=== PATIENT | male | born 1950 | race Caucasian/White ===

== ENCOUNTER → 2018-06-28 | Outpatient (CLI) | payer MEDICARE ==
[~2018-06-28] MED LIST: ACYC-114 PO; GADOBUTROL 7.5 MMOL/7.5 ML PFS ONE; IBUP-1221 PO
== END | disposition home or self-care (01) ==
LOC: CFH 09:07
PROVIDERS: ATTEND Psychiatry & Neurology Neurology
DX: M51.35 Other intervertebral disc degeneration, thoracolumbar region (principal); M50.30 Other cervical disc degeneration, unspecified cervical region; M99.53 Intervertebral disc stenosis of neural canal of lumbar region
CPT/HCPCS: 72156; 72157; 72158; A9585

== ENCOUNTER 2019-09-20 10:51 | Emergency (ER) | payer MEDICARE ==
[~2019-09-20] VITALS: Ht 182.9 cm; Wt 71.0 kg
[~2019-09-20 10:51] MED LIST changes: -GADOBUTROL 7.5 MMOL/7.5 ML PFS ONE
--- NOTE | 2019-09-20 11:32 | NUR ---
pt ambulatory to ed from home w/ . had episode of shaking that lasted approx 15 minutes. conscious the whole time. initially unable to talk but then able to walk and ask for help. +tunnel vision. no dizziness. did not fall. 09/07 had similar sx (worse) w/ worse weakness on L side. went to [facility], had ct/mri/neuro workup, was told he had TIA. PEARRL. moves all extrem. L arm slightly weaker but has shoulder injury, sts this is baseilne. L leg weaker but sts this has been weak since 09/07 and was worse last week. +sensation. silghtl tremors to L arm noted. no drift. speaking full sentences, A&Ox4 gcs 15. nsr 70s. vss. call vidal. hx L5 surgery/discectomy, has some numbness in L leg. awaiting md mcclain. as
[2019-09-20 12:14] LABS: BASOPHILS # (AUTO) 0.01 x10^3/uL (0-0.1); BASOPHILS % (AUTO) 0 % (0-1); EOSINOPHILS # (AUTO) 0.03 x10^3/uL (0-0.4); EOSINOPHILS % (AUTO) 1 % (1-7); LYMPHOCYTES # (AUTO) 0.98 x10^3/uL (1-3.4); LYMPHOCYTES % (AUTO) 17 % (22-44); MD NO; MEAN CORPUSCULAR HEMOGLOBIN 32.4 pg (27.5-34.5); MEAN CORPUSCULAR HGB CONC 33.8 g/dL (33.2-36.2); MEAN CORPUSCULAR VOLUME 95.7 fL (81-97); MEAN PLATELET VOLUME 8.6 fL (7.4-10.4); MONOCYTES # (AUTO) 0.38 x10^3/uL (0.2-0.8); MONOCYTES % (AUTO) 6 % (2-9); NEUTROPHILS # (AUTO) 4.51 x10^3/uL (1.8-6.8); NEUTROPHILS % (AUTO) 76 % (42-75); PLATELET COUNT 232 x10^3/uL (130-400); RED BLOOD COUNT 4.55 x10^6/uL (4.38-5.82); RED CELL DISTRIBUTION WIDTH 12.6 % (9.4-14.8)
[2019-09-20 12:28] LABS: ALBUMIN 4.1 g/dL (3.4-5.0); ANION GAP 7 mmol/L (5-15); CALCIUM 9.1 mg/dL (8.5-10.1); CHLORIDE 108 mmol/L (98-107)
--- NOTE | 2019-09-20 12:31 | NUR ---
labs pending. ua sent. pt sitting in bed a&o x4 reading a book. vss call vidal in reach. as
[2019-09-20 12:32] LABS: ALANINE AMINOTRANSFERASE 26 U/L (12-78); ALKALINE PHOSPHATASE 44 U/L (45-117); BILIRUBIN,TOTAL 0.7 mg/dL (0.2-1.0); CREATININE 0.97 mg/dL (0.7-1.3); TOTAL PROTEIN 7.2 g/dL (6.4-8.2)
[2019-09-20 12:45] LABS: CULTURE INDICATED? NO; MICROSCOPIC AUTO
[2019-09-20 13:02] LABS: AMPHETAMINE SCREEN, URINE Negative (Negative); BARBITURATE SCREEN, URINE Negative (Negative); BENZODIAZEPINE SCREEN, URINE Negative (Negative); CANNABINOID SCREEN, URINE Negative (Negative); COCAINE SCREEN, URINE Negative (Negative); METHADONE SCREEN, URINE Negative (Negative); OPIATE SCREEN, URINE Negative (Negative)
[2019-09-20 13:51] VITALS: BP 113/72
== END 2019-09-20 13:54 | disposition home or self-care (01) ==
LOC: ED 13:50
DX: R41.82 Altered mental status, unspecified (principal); R56.9 Unspecified convulsions; M79.605 Pain in left leg; Z00.00 Encounter for general adult medical examination without abnormal findings
CPT/HCPCS: 36415; 80053; 80307; 81001; 83605; 85025; 93005; 99284

== ENCOUNTER → 2019-10-21 | Outpatient (CLI) | payer MEDICARE | END | disposition home or self-care (01) | LOC: CARD 08:26 | PROVIDERS: ATTEND Psychiatry & Neurology Neurology | DX: G40.89 Other seizures (principal); R53.1 Weakness | CPT/HCPCS: 95819 ==